=== PATIENT | female | born 1930 | race Caucasian/White ===

== ENCOUNTER 2017-03-11 21:39 | Emergency (ER) | payer OTHER ==
[~2017-03-11] VITALS: Ht 157.5 cm; Wt 60.0 kg
[2017-03-11 21:43] VITALS: TEMP 36.7; Ht 157.5 cm; Wt 60.0 kg
[2017-03-11] MEDS ORDERED: SODIUM CHLORIDE 0.9% 1000ML 1,000 ML IV STA (22:47)
[2017-03-11 23:14] LABS: URINE APPEARANCE CLEAR (CLEAR); URINE BILIRUBIN NEG (NEG); URINE COLOR YELLOW; URINE EPITHELIAL CELL AUTO 20-30 /lpf (0-5); URINE NITRITE NEG (NEG); URINE SPECIFIC GRAVITY 1.012 (1.000-1.030); UROBILINOGEN NEG (NEG); ZZUR CULT IF INDIC CLEAN CATCH NO
[2017-03-11 23:15] LABS: MANUAL MICROSCOPIC REQUIRED? NO; REVIEW REQ? NO
[2017-03-11 23:18] LABS: BASO % 0.4 %; BASO ABS # 0.03 K/uL (0-0.2); COMPLETE YES; EOS % 5.5 %; HEMATOCRIT 31.8 % (37-47); IG% 0.2 %; LYMPH ABS # 1.61 K/uL (1.2-3.4); MEAN CELL VOLUME 87.6 fL (80-100); MEAN CORPUSCULAR HGB CONC 34.3 g/dl (32-36); MEAN PLATELET VOLUME 10.6 fL (7.4-10.4); MONO % 11.9 %; PLATELET COUNT 230 K/uL (130-400); RED BLOOD COUNT 3.63 M/uL (4.2-5.4); WHITE BLOOD COUNT 8.07 K/uL (4.8-10.8)
[2017-03-11 23:36] LABS: ALT/SGPT 25 U/L (12-78); AST/SGOT 34 U/L (15-37); BLOOD UREA NITROGEN 25 mg/dl (7-18); CALCIUM 8.5 mg/dl (8.5-10.1); CARBON DIOXIDE 24 mmol/L (21-32); CHLORIDE 109 mmol/L (98-107); GLUCOSE 100 mg/dl (70-99); POTASSIUM 3.9 mmol/L (3.5-5.1); SODIUM 144 mmol/L (136-145)
[2017-03-11 23:39] LABS: ALKALINE PHOSPHATASE 41 U/L (45-117)
[2017-03-11] MEDS ORDERED: METO25TA56 PO (23:58)
[2017-03-11] MEDS ORDERED: PRVC40 PO (23:58)
[2017-03-11] MEDS ORDERED: MAGN400T6 PO (23:58)
[2017-03-11] MEDS ORDERED: LORA-741 PO (23:58)
[2017-03-11] MEDS ORDERED: ASPI81TA28 PO (23:58)
[2017-03-11] MEDS ORDERED: MELO15TA4 PO (23:58)
[2017-03-11] MEDS ORDERED: LYR50 PO ×2 (23:59)
[2017-03-12] MEDS ORDERED: DTRSR/10 PO
[2017-03-12] MEDS ORDERED: AMLO-110 PO
[2017-03-12] MEDS ORDERED: CEPH500C PO (01:18)
--- NOTE | 2017-03-12 01:28 | EMERGENCY ROOM VISIT NOTE ---
History Report prepared by [place]: Imelda Edmonds Under the Supervision of: Dr. London Martinez M.D. First contact with patient: 22:46 Chief Complaint: ABDOMINAL PAIN Stated Complaint: L SIDE HURTS, CANT WALK,SOB,DEMENTIA,PREVIOUSKIDNE Nursing Triage Summary: Pt c/o left abd pain since 1200 today. Pt unable to ambulate with the pain. Pt states she fell today. Pt denies any injuries from fall. History of Present Illness The patient is an 86 year old female who presents to the Emergency Room with complaints of an episode of abdominal pain starting 11 hours ago. She reports that it has been bothering her since she fell. She currently rates her pain as a 10/10 in severity. Her daughter notes a history of kidney stones. The daughter notes that the patient has been leaning to the right for four days and appears to have had difficulty swallowing. She states that when she walks it seems like her legs just don't work. The patient complains of nausea. The patient denies hitting her head when she fell and her daughter denies a change in speech. Source of History: patient Onset: 11 hours ago Position: abdomen Symptom Intensity: 10/10 Timing: other (episode) Modifying Factors (Worsening): movement Associated Symptoms: + nausea Note: The patient complains of leaning to the right and difficulty swallowing. The patient denies any change in speech and hitting her head when she fell. Review of Systems See HPI for pertinent positives and negatives. A total of ten systems were reviewed and were otherwise negative. Past Medical & Surgical Medical Problems: (1) Frequent falls Family History Patient reports no known family medical history. Social History Smoking Status: Never Smoker Drug Use: none Marital Status: Housing Status: lives alone Occupation Status: retired Current/Historical Medications Scheduled Amlodipine (Norvasc), 5 MG PO DAILY Aspirin (Aspirin Ec), 81 MG PO DAILY Cephalexin Monohydrate (Keflex), 500 MG PO QID Magnesium Oxide (Mag-Ox), 400 MG PO BID Meloxicam (Mobic), 15 MG PO QAM Metoprolol Tartrate (Lopressor) (Lopressor), 12.5 MG PO BID Oxybutynin Chloride (Oxybutynin Chloride ER), 20 MG PO DAILY Pravastatin Sod (Pravastatin Sodium), 40 MG PO HS Pregabalin (Lyrica), 50 MG PO QAM Scheduled PRN Lorazepam (Ativan), 0.5 MG PO HS PRN for Sleep Miscellaneous Medications Pregabalin (Lyrica), 100 MG PO Allergies Coded Allergies: Fish (Verified Allergy, Severe, ANAPHYLAXIS, 03/11/17) Fish Oil (Verified Allergy, Severe, ANAPHYLAXIS, 03/11/17) Physical Exam Vital Signs Date Time Temp Pulse Resp B/P (MAP) Pulse Ox O2 Delivery O2 Flow Rate FiO2 03/11/17 23:51 60 20 100 Room Air 03/11/17 23:00 80 18 127/78 98 Room Air 03/11/17 22:44 57 03/11/17 21:43 36.7 66 20 128/74 98 Room Air Physical Exam GENERAL: Awake, alert, anxious-appearing, in no distress HENT: Normocephalic, atraumatic. Oropharynx unremarkable. EYES: Normal conjunctiva. Sclera non-icteric. NECK: Supple. No nuchal rigidity. FROM. No JVD. RESPIRATORY: Clear to auscultation. CARDIAC: Regular rate, normal rhythm. Extremities warm and well perfused. Pulses equal. ABDOMEN: Soft, non-distended. Mild generalized abdominal tenderness to palpation. No rebound or guarding. No masses. RECTAL: Deferred. MUSCULOSKELETAL: Chest examination reveals no tenderness. The back is symmetrical on inspection without obvious abnormality. There is no CVA tenderness to palpation. No joint edema. LOWER EXTREMITIES: Calves are equal size bilaterally and non-tender. Trace lower extremity edema. No discoloration. NEURO: Normal sensorium. No sensory or motor deficits noted. SKIN: No rash or jaundice noted. Medical Decision & Procedures Laboratory Results 03/11/17 23:08 Red Blood Count 3.63, Mean Corpuscular Volume 87.6, Mean Corpuscular Hemoglobin 30.0, Mean Corpuscular Hemoglobin Concent 34.3, Mean Platelet Volume 10.6, Neutrophils (%) (Auto) 62.0, Lymphocytes (%) (Auto) 20.0, Monocytes (%) (Auto) 11.9, Eosinophils (%) (Auto) 5.5, Basophils (%) (Auto) 0.4, Neutrophils # (Auto ) 5.01, Lymphocytes # (Auto) 1.61, Monocytes # (Auto) 0.96, Eosinophils # (Auto ) 0.44, Basophils # (Auto) 0.03 03/11/17 23:08 Test 03/11/17 22:55 03/11/17 23:08 Urine Color YELLOW Urine Appearance CLEAR (CLEAR) Urine pH 6.0 (4.5-7.5) Urine Specific [place] 1.012 (1.000-1.030) Urine Protein NEG (NEG) Urine Glucose (UA) NEG (NEG) Urine Ketones NEG (NEG) Urine Occult Blood NEG (NEG) Urine Nitrite NEG (NEG) Urine Bilirubin NEG (NEG) Urine Urobilinogen NEG (NEG) Urine Leukocyte Esterase MODERATE (NEG) Urine WBC (Auto) 5-10 /hpf (0-5) Urine RBC (Auto) 0-4 /hpf (0-4) Urine Hyaline Casts (Auto) 0 /lpf (0-5) Urine Epithelial Cells (Auto) 20-30 /lpf (0-5) Urine Bacteria (Auto) NEG (NEG) White Blood Count 8.07 K/uL (4.8-10.8) Red Blood Count 3.63 M/uL (4.2-5.4) Hemoglobin 10.9 g/dL (12.0-16.0) Hematocrit 31.8 % (37-47) Mean Corpuscular Volume 87.6 fL (80-100) Mean Corpuscular Hemoglobin 30.0 pg (25-34) Mean Corpuscular Hemoglobin Concent 34.3 g/dl (32-36) Platelet Count 230 K/uL (130-400) Mean Platelet Volume 10.6 fL (7.4-10.4) Neutrophils (%) (Auto) 62.0 % Lymphocytes (%) (Auto) 20.0 % Monocytes (%) (Auto) 11.9 % Eosinophils (%) (Auto) 5.5 % Basophils (%) (Auto) 0.4 % Neutrophils # (Auto) 5.01 K/uL (1.4-6.5) Lymphocytes # (Auto) 1.61 K/uL (1.2-3.4) Monocytes # (Auto) 0.96 K/uL (0.11-0.59) Eosinophils # (Auto) 0.44 K/uL (0-0.5) Basophils # (Auto) 0.03 K/uL (0-0.2) RDW Standard Deviation 43.2 fL (36.4-46.3) RDW Coefficient of Variation 13.5 % (11.5-14.5) Immature Granulocyte % (Auto) 0.2 % Immature Granulocyte # (Auto) 0.02 K/uL (0.00-0.02) Anion Gap 11.0 mmol/L (3-11) Est Creatinine Clear Calc Drug Dose 26.6 ml/min Estimated GFR () 47.4 Estimated GFR (Non- 40.9 BUN/Creatinine Ratio 21.0 (10-20) Calcium Level 8.5 mg/dl (8.5-10.1) Total Bilirubin 0.4 mg/dl (0.2-1) Direct Bilirubin < 0.1 mg/dl (0-0.2) Aspartate Amino Transf (AST/SGOT) 34 U/L (15-37) Alanine Aminotransferase (ALT/SGPT) 25 U/L (12-78) Alkaline Phosphatase 41 U/L (45-117) Total Protein 6.4 gm/dl (6.4-8.2) Albumin 3.3 gm/dl (3.4-5.0) Lipase 91 U/L (73-393) Laboratory results reviewed by me ECG Indication: abdominal pain Rate (beats per minute): 62 Rhythm: normal sinus Findings: no acute ischemic change, left axis deviation, no ectopy ED Course 2308: The patient was evaluated in room B6. A complete history and physical exam was performed. 2350: I reevaluated the patient and she had some panic about the Cat Scan. The patient states that 10 years ago she had a CT with dye and had a bad reaction. She states that she is afraid it was going to happen again. I assured her that this is without contrast. I reexamined her and she is stable. She agrees to go to CT and her family is on board. 0036: I reevaluated the patient and she is doing okay. Medical Decision Triage Nursing notes reviewed. The patient's presentation and history were concerning for abdominal pain and weakness. Etiologies such as appendicitis, diverticulitis, obstruction, inflammatory bowel disease, renal colic, PUD, biliary pathology, pancreatitis, mesenteric ischemia, aortic pathology, infections, genitourinary, UTI, perforated viscus, EM pneumonia, dehydration, CVA, as well as others were entertained. The patient was evaluated. She had diffuse abdominal tenderness. Arrival she had a very large amounts of urine produced. The patient underwent laboratory testing or CT imaging. She did not have any evidence of acute intracranial issues. Her CT scan of her abdomen and pelvis did not reveal any acute findings. Acutely stones noted but nothing was obstruction. She had a moderate amount of urine still in her bladder. The patient then urinated after CT imaging and had produced a large amount of urine again. Bladder scan was performed and revealed 200-250 mL of urinary retention. The patient was reexamined. Her abdominal examination was much better. Theoretically her abdominal issues could've been from urinary retention. She has been urinating and now things are much better. There were some white blood cells noted on urinalysis. No bacteria present. Given the urinary retention I discussed being conservative and treating the patient's social course of Keflex while urine cultures pending. Also discussed referral to urology. The patient's daughter prefer her being at home. She has patient's family feels comfortable with her being at home. If she worsens in any way she will be back. She will follow the primary physician this week. Given her dementia and advanced age with ability to urinate a Boyce catheter was felt to be unnecessary and more prone to issues. The patient's cleaning and bending over may have an due to the urinary retention and abdominal discomfort. By the evaluation outlined above other emergent etiologies such as those listed in the differential, as well as others, were deemed relatively unlikely. The patient was educated about the findings as listed above. All questions were answered and the patient and family were pleased with the treatment. Return instructions were outlined and the patient was discharged in stable condition. The patient was referred to urology and PCP for follow-up for a recheck of the current condition. Impression Primary Impression: Generalized abdominal pain Additional Impressions: Urinary retention Weakness Scribe Attestation The scribe's documentation has been prepared under my direction and personally reviewed by me in its entirety. I confirm that the note above accurately reflects all work, treatment, procedures, and medical decision making performed by me. Departure Information Prescriptions Cephalexin Monohydrate (Keflex) 500 Mg Cap 500 MG PO QID, #12 CAP Prov: London Martinez MD 03/12/17 Patient Instructions [facility] Problem Qualifiers
[2017-03-12] MEDS ORDERED: CEPHALEXIN 500MG HOME PACK 1 EA BTL PO ONE (01:30)
[2017-03-12 01:34] VITALS: BP 134/64; PULSE 67; O2SAT 97
--- NOTE | 2017-03-12 06:28 | DIAGNOSTIC IMAGING REPORT ---
HEAD WITHOUT CONTRAST (CT) CT DOSE: 537.48 mGy.cm HISTORY: Dyspnea difficulty swallowing, leaning to the right, weakness TECHNIQUE: Multiaxial CT images of the head were performed without the use of intravenous contrast. A dose lowering technique was utilized adhering to the principles of ALARA. Comparison: None. Findings: Chronic sclerosis of the mastoid air cells. The calvarium and skull base are intact. The ventricles and sulci are within normal limits. There is no mass, hematoma, midline shift, or acute infarct. Chronic small vessel change of aging. No acute intracranial hemorrhage. Impression: Age-related change. No acute process. The above report was generated using voice recognition software. It may contain grammatical, syntax or spelling errors. Electronically signed by: Jacobo Bustamante M.D. 03/12/2017 6:27 AM Dictated Date/Time: 03/12/2017 6:24 AM
--- NOTE | 2017-03-12 06:46 | DIAGNOSTIC IMAGING REPORT ---
CT OF THE ABDOMEN AND PELVIS WITHOUT CONTRAST, STONE PROTOCOL CLINICAL HISTORY: Acute left flank pain. COMPARISON STUDY: None. TECHNIQUE: Helical axial images of the abdomen and pelvis were obtained without IV or oral contrast according to renal stone protocol. A dose lowering technique was utilized adhering to the principles of ALARA. FINDINGS: Note is made of a 5 mm x 6 mm nonobstructing left renal pelvis calculus. There are numerous bilateral renal calculi. There is mild left hydronephrosis. No ureteral calculi are present. The urinary bladder is markedly distended. Evaluation of the remainder of the abdomen and pelvis is suboptimal on this unenhanced exam. The liver, spleen, adrenal glands and pancreas are unremarkable. There is no evidence for a bowel obstruction. There is no ascites or lymphadenopathy. There is prominence of the uterus, a nonspecific finding on this unenhanced CT. There are no suspicious osseous lesions. IMPRESSION: 1. 6 mm x 5 mm nonobstructing left renal pelvis calculus. Numerous bilateral renal calculi. Mild left hydronephrosis with no ureteral calculi identified. Differential considerations include a recently passed calculus, infectious process or occult lesion. 2. No acute inflammatory process within the abdomen or pelvis on unenhanced exam. Normal appendix. 3. Marked distention of the bladder. Electronically signed by: Fabricio Blanco M.D. 03/12/2017 6:44 AM Dictated Date/Time: 03/12/2017 6:38 AM
== END 2017-03-12 01:35 | disposition home or self-care (01) ==
LOC: C.EDB 21:41
DX: R10.84 Generalized abdominal pain (principal); R33.9 Retention of urine, unspecified; R53.1 Weakness; Z87.442 Personal history of urinary calculi; Z79.82 Long term (current) use of aspirin; Z79.899 Other long term (current) drug therapy